=== PATIENT | male | born 1950 | race Two or more races ===

== ENCOUNTER 2021-09-09 13:19 | Emergency (ER) | payer OTHER ==
[~2021-09-09] VITALS: Ht 175.3 cm; Wt 90.7 kg
[2021-09-09 15:40] VITALS: BP 152/88
== END 2021-09-09 15:57 | disposition home or self-care (01) ==
LOC: ER 13:19
DX: L03.012 Cellulitis of left finger (principal)
CPT/HCPCS: 73200